=== PATIENT | male | born 1975 ===

== ENCOUNTER 2020-03-10 05:57 | Day surgery (SDC) | payer OTHER ==
[2020-03-10] MEDS ORDERED: KETOROLAC TROMETHAMINE INJ 30 MG/ML VIAL ONE (07:00)
[2020-03-10] MEDS ORDERED: ePHEDrine SULF 50 MG/ML ONE (07:00)
[2020-03-10] MEDS ORDERED: ceFAZolin SODIUM 1 GM VIAL ONE (07:00)
[2020-03-10] MEDS ORDERED: SODIUM CHLORIDE 0.9% 50 ML VIAL ONE (07:00)
[2020-03-10] MEDS ORDERED: PROPOFOL 200 MG/20 ML VIAL IV ONE (07:00)
[2020-03-10] MEDS ORDERED: diphenhydrAMINE HCL 50 MG/ML VIAL ONE (07:00)
[2020-03-10] MEDS ORDERED: DEXAMETHASONE INJ 10 MG/ML VIAL ONE (07:00)
[2020-03-10] MEDS ORDERED: MAGNESIUM SULFATE INJ 1 GM/2 ML VIAL ONE (07:00)
[2020-03-10] MEDS ORDERED: LACTATED RINGERS 1,000 ML ONE (09:30)
[2020-03-10] MEDS ORDERED: LACTATED RINGERS 1,000 ML IVS ONE (10:45)
[2020-03-10] MEDS ORDERED: BUPIVACAINE 0.5% W/EPI 30 ML VIAL INJ ONE ×2 (10:47→12:44)
[2020-03-10] MEDS ORDERED: KETAMINE HCL 100 MG/ML VIAL ONE (12:38)
[2020-03-10] MEDS ORDERED: DEXMEDETOMIDINE HCL 200 MCG/2 ML INJ IV ONE (12:38)
[2020-03-10] MEDS ORDERED: fentaNYL CITRATE INJ 50 MCG/ML 2 ML AMP ONE (12:38)
[2020-03-10] MEDS ORDERED: MIDAZOLAM INJ 2 MG/2 ML VIAL ONE (12:38)
[2020-03-10] MEDS ORDERED: FAMOTIDINE INJ 10 MG/ML VIAL IV ONE (12:59)
[2020-03-10] MEDS ORDERED: ACETAMINOPHEN IV 1000MG 100 ML ONE (13:57)
[2020-03-10] MEDS ORDERED: LACTATED RINGERS 800 ML IVS ONE (14:09)
[2020-03-10] MEDS ORDERED: HYDROcodone 5MG/APAP 325MG 1 EA TAB ONE (14:53)
--- NOTE | 2020-03-10 15:29 | OP ---
DATE OF PROCEDURE: 03/10/20 PREOPERATIVE DIAGNOSIS: 1. Bilateral inguinal hernias. POSTOPERATIVE DIAGNOSIS: 1. Bilateral inguinal hernias. PROCEDURE: 1. Repair of right inguinal hernia with PHS mesh. 2. Right ilioinguinal nerve block for postoperative pain control. 3. Repair of left inguinal hernia with large PHS mesh. 4. Left ilioinguinal nerve block for postoperative pain control. SURGEON: Tereso Anderson MD. ANESTHESIA: General and local. FINDINGS: The right side showed a large to moderate inguinal hernia with small knot of some scarred fat. The left side was not as large, but definitely left inguinal hernia and fatty cord lipoma. COMPLICATIONS: None. ESTIMATED BLOOD LOSS: None. CONDITION: Stable. PLAN: Discharge. INDICATION: As stated. PROCEDURE: General anesthesia was induced. He was prepped and draped in sterile fashion. Both sides were marked. Bilateral ilioinguinal nerve blocks were performed with 3 cc of 0.5% Marcaine epinephrine based on anatomic landmarks. This was for postoperative pain control. The right side was done first. Incision was made. Subcutaneous tissues were taken down. The subcutaneous vessel was cauterized and ligated. The external oblique aponeurosis was opened along its fibers and dissected free. The nerve was identified and protected inferiorly. The cord was then isolated. A large, bulbous sac was there. There was scarred fatty tissue near the end of it, which was excised from the vessel with no evidence of vessel injury. We dissected the sac completely off. There was fatty content in the sac. This was then reduced. We kept the epigastric vessels anteriorly while we developed a plane with 3 moist Raytec sponges and finger sweeps. The large PHS mesh was then placed in the preperitoneal plane, nice and flat as seen by retractors. The epigastric vessels, again, were anterior. Once this was done, a cut was made, wrapped around the cord, non-stricturing and secured at the shelving edge and then secured at the pubic tubercle. The mesh was then laid out laterally underneath the external oblique. The nerve was no underneath the mesh. The external oblique was then closed with a running 2-0 Vicryl. We could see the nerve near the distal end of the closure and it was not in our closure and was protected. The wound was then closed in two layers and dressing applied. The left side was then done in identical fashion. The hernia itself was a little bit smaller and dissected down and reduced. There was no direct component. Again, the epigastric vessels were kept anteriorly with an [place] as the preperitoneal plane was dissected free without difficulty. No bleeding. The large mesh was then used. A cut was made, wrapped around the cord, non-stricturing and secured at the shelving edge and the tubercle. It was laid laterally. We looked for the cord where the nerve, it looked to be in the cord structure itself, it was not dissected free with no evidence that it was identified or injured and not incorporated in the external oblique closure. It was closed with 2-0 running Vicryl. More local anesthesia had been placed on both sides. The wound was then closed in two layers and dressing applied. He tolerated the procedure. The patient was awakened and taken to Recovery to be discharged. #[id number] [facility]
[2020-03-10 15:41] VITALS: BP 115/71; TEMP 96.7; O2SAT 99
== END 2020-03-10 15:35 | disposition home or self-care (01) ==
LOC: AMB 05:57
PROVIDERS: ATTEND Surgery
DX: K40.20 Bilateral inguinal hernia, without obstruction or gangrene, not specified as recurrent (principal)
CPT/HCPCS: 00830; 49505; A4216; J0690; J1100; J1200; J1885; J2250; J3010; J3475; J3490; J7120